=== PATIENT | female | born 1980 | race Caucasian/White ===

== ENCOUNTER 2023-10-16 16:49 | Outpatient (REF) | payer BC, SELFPAY | END 2023-10-16 16:50 | disposition home or self-care (01) | LOC: NFLDREF 16:49 | PROVIDERS: PCP Family Medicine; Referring Provider Family Medicine; Visit Provider Nurse Practitioner | DX: N30.00 Acute cystitis without hematuria (principal) | CPT/HCPCS: 87086; 87186 ==

== ENCOUNTER 2024-07-22 17:50 | Emergency (ER) | payer BC, SELFPAY ==
[2024-07-22 17:53] VITALS: BP 135/83; PULSE 70; RESP 18; TEMP 36.4; O2SAT 100; BMI 26.4
[2024-07-22 18:12] LABS: Appearance Urine Clear (Clear); Bilirubin Urine Negative (Negative); Blood Urine 3+ (Negative); Color Urine Yellow (Yellow); Glucose Urine Negative (Negative); Ketones Urine Negative (Negative); Leukocyte Esterase Urine 1+ (Negative); Nitrite Urine Negative (Negative); Protein Urine 2+ (Negative); Urobilinogen Urine 0.2 (0.2-1.0)
--- OUTSIDE RECORDS SUMMARY | 2024-07-22 18:12 | XMS_ITS | Clinical Summary ---
Author Organization [facility] Address [place], [place] [address] Care Team Providers Care Freezer Person Name Role Phone Annette Mensah DO Primary Care Provider [phone] Allergies Active Allergy Reactions Criticality Noted Date Comments Sulfa (Sulfonamide Antibiotics) Throat Swelling/Closing High 01/03/2018 Medications Medication Sig Dispensed Refills Start Date End Date Status multivitamin (MVI) tablet Take 1 Tablet by mouth once daily. 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 Increased risk sab, labor and 50% successful live per perinatology Seen in L&D 06/08/20 with ctxs. Resolved with IVF, cervix closed. FFN negative. Received betamethasone x 2 Does NOT want to know gender Rhogam given 05/20/20 at 28wks along with Tdap and Influenza vaccine Estimated Date of Delivery: 08/07/20 Patient's last menstrual period was 10/30/2019. Last Tdap- 05/20/2020 Last Flu vaccine- 05/20/2020 Glucose (GTT) result- Component Latest Ref Rng & Units 05/20/2020 HEMOGLOBIN 12.0 - 16.0 g/dL 11.5 (L) MCV 80 - 100 fL 89 ANTIBODY SCREEN Negative Negative SPECIMEN EXPIRATION DATE/TIME 05/22/20 23:59 GLUCOSE,GESTATIONAL 65 - 139 mg/dL 80 TREPONEMA PALLIDUM Negative Negative 20 week US:LMP: 10/30/2019. FINDINGS: Gestational age by LMP: 24 weeks 6 days. Gestational age by first ultrasound: 24 weeks 4 days. Gestational age by today's ultrasound: 24 weeks 6 days. NICOL by LMP: 08/05/2020. NICOL by first ultrasound: 08/07/2020. NICOL by today's ultrasound: 08/05/2020. Heart Rate: 149 beats per minute. SDP: 4.5 cm. Cervical Length: 3.8 cm. Umbilical Artery S/D Ratio: 2.9. Estimated Weight: 792 grams. Percentile: 73%. Placenta: Anterior. Position: Breech. BPD: 58 mm, 23 weeks 6 days. HC: 216 mm, 23 weeks 5 days. AC: 208 mm, 25 weeks 3 days. FL: 48 mm, 26 weeks 0 days. IMPRESSION: Single live intrauterine gestation with a composite gestational age of 24 weeks 6 days and NICOL of 08/05/2020. Allergies Allergen Reactions Sulfa (Sulfonamide Antibiotics) Throat Swelling/Closing OB History Para Term AB Living 5 0 0 0 4 0 SAB TAB Ectopic Multiple Live Births 4 0 0 0 0 # Outcome Date GA Lbr Brenden/2nd Weight Sex Delivery Anes PTL Lv 5 Current 4 SAB 08/19/19 6w0d 3 SAB 05/2019 Comments: 'chemical ' per pt 2 SAB 09/2018 Comments: early sab 1 SAB 2002 8w0d Create lab flowsheet for OB labs- Component Latest Ref Rng & Units 12/30/2019 12/30/2019 12/30/2019 11:00 AM 11:00 AM 11:00 AM ANTIBODY SCREEN Negative Negative SPECIMEN EXPIRATION DATE/TIME 01/02/20 23:59 HEMOGLOBIN 12.0 - 16.0 g/dL 12.9 MCV 80 - 100 fL 87 RUBELLA IGG ANTIBODY Positive 6.62 HEMOGLOBIN A1C SCREENING <=6.4 % 5.2 HBSAG Nonreactive Nonreactive HIV-1/HIV-2 ANTIBODY Non-Reactive Non-Reactive TREPONEMA PALLIDUM Negative Negative Past Medical History: . Date ASCUS of cervix with negative high risk HPV 12/2016 Low grade squamous intraepithelial lesion (LGSIL) on cervical Pap smear 12/2015 [place]-R[facility] 1 Past Surgical History: . Laterality Date COLPOSCOPY 12/2017 negative; Pap: NIL/HPV negative; Recommend Pap smear/hpv in 1 year. Due- 12/2018 COLPOSCOPY 01/2016 [facility] 1 DILATION AND CURETTAGE OF UTERUS 08/2003 WISDOM TEETH EXTRACTION 2000 No data on file. Problems (from 12/02/19 to present) No problems associated with this episode. 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 RICH I (cervical intraepithelial neoplasia I) 04/2018 Overview (08/04/2022): 01/18/2016 LSIL 01/28/2016 [place]: RICH I 01/18/2017 ASCUS/HPV Negative 01/18/2018 NIL/HPV Negative 01/18/2018 [place]: ECC Benign 01/14/2019 NIL/HPV Negative 02/11/2020 NIL/HPV Negative 06/30/2022 NIL/HPV Negative Plan: Pap/HPV due 06/2027 Immunizations Name Administration Dates Next Due DTaP 03/10/1987, 4,1982,1982, Hepatitis B (Peds) 11/06/1995,05/22/1995, 995 Hib Conjugate, Unspecified 07/08/1985 Human Papilloma Virus Vaccine 02/25/2008, 007,06/04/2007 Inactivated Polio Vaccine 03/10/1987,09/16/1983, 1982,1982 Influenza, IIV4 05/20/2020,07/24/2017 MMR 04/10/1995,09/16/1983 Tdap 05/20/2020,03/16/2009,04/07/1997 Family History Medical History Relation Name Comments Hyperlipidemia Father Hypertension Father Cancer-colon Maternal Grandmother Hypertension Maternal Grandmother Hyperlipidemia Mother Hypertension Mother Leukemia Paternal Grandmother Relation Name Status Comments Father Alive Maternal Grandmother Mother Alive Paternal Grandmother Social History Tobacco Use Types Packs/Day Years Used Date Smoking Tobacco: Former Cigarettes 1 17 0 01/03/2001 - 03/05/2016 Smokeless Tobacco: Never Tobacco Cessation:Counseling Given: Yes Alcohol Use Standard Drinks/Week Comments Yes 0 (1 standard drink = 0.6 oz pur e alcohol) PHQ-2 Answer Date Recorded PHQ-2 TOTAL SCORE 0 01/17/2024 Social Connections Answer Date Recorded Do you often feel lonely or isolated from those around you? 0 01/17/2024 Alcohol Use Answer Date Recorded How often do you have a drink containing alcohol ? 2 01/17/2024 How many drinks containing a lcohol do you have on a typical day when you are drinking? 0 01/17/2024 How often do you have five or more drinks on one occasion? 0 01/17/2024 Financial Resource Strain Answer Date R ecorded Difficulty of Paying Living Expenses 3 01/17/2024 Difficulty of Paying Living Expenses Not on file 01/17/2024 Food Insecurity Answer Date Recorded Do you worry your food will run out before you are able to buy more? 1 01/17/2024 Transportation Needs Answer Date Record ed Does lack of transportation keep you from medica l appointments? 1 01/17/2024 Does lack of transportation keep you from work, meetings or getting things that you need? 1 01/17/2024 Housing Stability Answer Date Recorded What is your housing situation today? 1 01/17/2024 Sex and Gender Information Value Date Recorded Sex Assigned at Not on file Gender Identity Not on file Sexual Orientation Not on file Obstetrics History Para Term AB IAB SAB Ectopic Multiple Livin g Live Births 5 0 0 0 4 0 4 0 0 0 0 Date Outcome GA Total Labor Labor/2nd/3rd Weight Sex Type Anes PTL Nicki A1 A5 Name Clin 2003 SAB 8w0d 09/2018 SAB Comments:early sab 05/2019 SAB Comments:'chemical pre gnancy' per pt 019 SAB 6w0d Last Filed Vital Signs Vital Sign Reading Time Taken Comments Blood Pressure 100/67 01/17/2024 7:33 AM CDT Pulse 86 01/17/2024 7:33 AM CDT Temperature 36.8 C (98.2 F) 12/14/2022 3:35 PM CDT Respiratory Rate 16 12/14/2022 5:30 PM CDT Oxygen Saturation 99% 01/17/2024 7:33 AM CDT Inhaled Oxygen Concentration - - Weight 71.2 kg (157 lb) 01/17/2024 7:33 AM CDT Height 161.3 cm (5' 3.5) 01/17/2024 7:33 AM CDT Body Mass Index 27.38 01/17/2024 7:33 AM CDT Plan of Treatment Health Maintenance Due Date Last Done Comments COVID-19 vaccine series (2023- season) 2024 Influenza for age 9-49 04/28/2024 05/20/2020, 2016 BMI (ht and wt on same day) for age 18+ 01/16/2025 01/17/2024, 11/28/2022, 10/28/2022, Additional history exists Depression screening for age 12+ 01/16/2025 01/17/2024, 06/30/2022, 05/20/2020, Additional history exists Pap test for age 21-65 06/30/2027 , 06/30/2022, 02/11/2020, Additional history exists Tetanus booster 05/20/2030 05/20/2020, 02/26, 04/07/1997 Hepatitis C screening for age 18-79 Completed 08/06/2019 HIV for age 15-65 Completed 12/30/2019, 08/06/2019 Tdap Completed 05/20/2020, 02/26, 04/07/1997 Pneumococcal series for age 6-64 Aged Out No longer eligible based on patient's age to complete this topic Medical Devices Implanted Type Area [facility] Device Identifier Shelf Expiration Date Model / Serial / Lot Novostitch Meniscal Repair Cartridge Implanted:Qty: 1 on 12/14/2022 by Yeison Zhao MD at [facility] Left: Knee [employer] 01/15/2023 CTX-R001 / / [id number] Novostitch Pro Meniscal Repair System Implanted:Qty: 2 on 12/14/2022 by Yeison Zhao MD at [facility] Left: Knee [employer] 03/13/2024 CTX-A003 / / [id number] Nov[employer]itch Meniscal Repair Cartridge Implanted:Qty: 2 on 12/14/2022 by Yeison Zhao MD at [facility] Left: Knee [employer] 06/10/2023 CTX-R001 / / [id number] Fiberstitch Implant Curved Implanted:Qty: 1 on 12/14/2022 by Yeison Zhao MD at [facility] Left: Knee [employer] 09/27/2026 [id number] / / [id number] Procedures Procedure Name Priority Date/Time Associated Diagnosis Comments HPV HIGH RISK Routine 06/30/2022 1:55 PM CDT Cervical cancer screening ANTI HIV 1/2 Routine 12/30/2019 11:00 AM CDT High-risk in first trimester care in first trimester ANTI HCV Routine 08/06/2019 4:18 PM CIRCULATION ANALYST Encounter for supervision of normal first in first trimester from Last 3 Months or Most Recently Relevant to Health Maintenance Results * HPV HIGH RISK (06/30/2022 1:55 PM CDT) TYPE 16 Negative Negative 07/05/2022 11:43 AM CIRCULATION ANALYST [facility] TYPE 18 Negative Negative 07/05/2022 11:43 AM CIRCULATION ANALYST [facility] OTHER HIGH RISK TYPES Negative Negative 07/05/2022 11:43 AM CIRCULATION ANALYST [facility] Other (Cervical) Non-Blood / Unknown 06/30/2022 1:55 PM CDT 07/01/2022 10:44 AM CDT Narrative [facility] - 07/05/2022 11:43 AM CIRCULATION ANALYST HPV types 16, 18, 31, 33, 35, 39, 45, 51, 52, 56, 58, 59, 66 and 68 DNA were undetectable or below the pre-set threshold. Methodology: [facility] 4800 HPV Test Annette Mensah DO MICROBIOLOGY [facility] [address] [place] [address], [place] * ANTI HIV 1/2 (12/30/2019 11:00 AM CDT) HIV-1/HIV-2 ANTIBODY Non-Reacti ve Non-Reacti ve 12/30/2019 5:08 PM CDT [facility] Comment:HIV-1 p24 and HIV-1/ HIV-2 Ab not detected. Blood BLOOD SPECIMEN / Unknown Venipuncture / Unknown 12/30/2019 11:00 AM CDT 12/30/2019 11:00 AM CDT Annette Mensah DO SEND OUTS [facility] [address] [place] [address], [place] * ANTI HCV (08/06/2019 4:18 PM CIRCULATION ANALYST) Pathologist [facility] HEPATITIS C ANTIBODY Non-React anna Non-React anna 08/07/2019 2:46 PM CIRCULATION ANALYST [facility] Comment:Antibodies to HCV no t detected; does not exclude the possibility of exposure to HCV. Blood BLOOD SPECIMEN / Unknown Venipuncture / Unknown 08/06/2019 4:18 PM CIRCULATION ANALYST 08/06/2019 4:18 PM CIRCULATION ANALYST Shannan MARIA [facility] [address] [place] [phone], from Last 3 Months or Most Recently Relevant to Health Maintenance Advance Directives * Full Code (Latest Code Status on File) Date Activated Date Inactivated Comments 12/14/2022 9:59 AM 12/14/2022 9:01 PM Question Answer Comments Code Status Discussion: Reviewed Preferences Care Teams Freezer Person Relationship Specialty Start Date End Date Annette Mensah DO [address] [place] [address] PCP - General Family Practice 08/01/17
[2024-07-22 18:28] LABS: Bacteria Urine Few; Squamous Epithelial Cell Urine Few (None-Few)
--- NOTE | 2024-07-22 18:29 | ED_ITS ---
HPI - General Adult General Chief complaint: Urogenital Problems, Female Stated complaint: Likely bladder infection Time Seen by Provider: 07/22/24 17:53 Source: patient Mode of arrival: ambulatory Limitations: no limitations History of Present Illness HPI narrative: 44-year-old female coming in today with 1 day of dysuria, increased urinary frequency and urgency. Had a UTI last year that was similar. Denies flank pain, fevers, chills, nausea or vomiting. Related Data Previous Rx's ?Medication ?Instructions ?Recorded nitrofurantoin 100 mg PO Q12H 5 days #10 caps 07/22/24 monohydrate/macrocrystals 100 mg capsule (Macrobid) Allergies Allergy/AdvReac Type Severity Reaction Status Date / Time Sulfa (Sulfonamide Allergy Verified 07/22/24 17:57 Antibiotics) Review of Systems Status of ROS: Reports: 6 or more systems reviewed and unremarkable except as noted in History and below PFSH PFS Social History Smoking Status: Former smoker How often do you have a drink containing alcohol: monthly or less AUDIT-C Alcohol total score: 1 Non-prescribed substance use: denies use Exam Narrative: Exam Narrative: Well-nourished well-developed patient in no acute distress. Alert and oriented. Answers questions appropriately. Mood and affect are appropriate. Thoughts are goal oriented and rational. No tangential or magical thinking noted. Patient speaks in full sentences without needing to catch her breath. HEENT: Normocephalic atraumatic. Pupils are equally round reactive to light. Extraocular muscles are intact. Conjunctivae are moist without any icterus noted. Moist mucous membranes. Cardiovascular: Heart is regular rate and rhythm. Lungs: Clear to auscultation bilaterally. Abdomen: Soft and nontender nondistended with normal bowel sounds. Const: Vital Signs, click to edit/add: Vital Signs - 24 hr 07/22/24 17:53 Temperature 97.5 F L Pulse Rate [Left P ulse Oximeter] 70 Respiratory Rate 18 Blood Pressure [Ri ght Upper Arm] 135/83 Pulse Oximetry 100 Oxygen Delivery Me thod Room Air Course Course ED Course: UA grossly positive for signs of infection. Vital Signs Vital signs: Initial Vital Signs Temperature 97.5 F L 07/22/24 17:53 Temperature Source Oral 07/22/24 17:53 Pulse Rate 70 07/22/24 17:53 Respiratory Rate 18 07/22/24 17:53 Blood Pressure 135/83 07/22/24 17:53 Blood Pressure Mean 100 07/22/24 17:53 Blood Pressure Position Sitting 07/22/24 17:53 Pulse Oximetry 100 07/22/24 17:53 Oxygen Delivery Method Room Air 07/22/24 17:53 Vital Signs Temperature 97.5 F L 07/22/24 17:53 Pulse Rate 70 07/22/24 17:53 Respiratory Rate 18 07/22/24 17:53 Blood Pressure 135/83 07/22/24 17:53 Pulse Oximetry 100 07/22/24 17:53 Oxygen Delivery Method Room Air 07/22/24 17:53 Temperature 97.5 F L 07/22/24 17:53 Pulse Rate 70 07/22/24 17:53 Respiratory Rate 18 07/22/24 17:53 Blood Pressure 135/83 07/22/24 17:53 Pulse Oximetry 100 07/22/24 17:53 Oxygen Delivery Method Room Air 07/22/24 17:53 Medical Decision Making MDM Narrative Medical decision making narrative: 44-year-old female with UTI. Will treat with Macrobid. Lab Data Lab results reviewed: Yes I reviewed the patient's lab results Labs: Lab Results 07/22/24 Range/Units 18:00 Urine Color Yellow (Yellow) Urine Appearance Clear (Clear) Urine pH 6.0 (5.0-8.5) Ur Specific [place] 1.010 (1.000-1.030) Urine Protein 2+ A (Negative) Urine Glucose (UA) Negative (Negative) Urine Ketones Negative (Negative) Urine Blood 3+ A (Negative) Urine Nitrite Negative (Negative) Urine Bilirubin Negative (Negative) Urine Urobilinogen 0.2 (0.2-1.0) Ur Leukocyte Esterase 1+ A (Negative) Urine RBC 10-25 A (0-2) Urine WBC 10-25 A (0-5) Ur Squamous Epith Cells Few (None-Few) Urine Bacteria Few A (None) Discharge Plan Discharge Clinical Impression: Urinary tract infection Instructions: Urinary Tract Infection in Women (DC) Additional Instructions: Take all antibiotics as prescribed. If you are not feeling better in 2-3 days, follow-up with your primary care provider. Prescriptions: New nitrofurantoin monohyd/m-cryst [Macrobid] 100 mg capsule 100 mg PO Q12H 5 Days Qty: 10 0RF Rx Instructions: must administer with a meal/food Follow Up/Referrals: Annette Mensah DO [Primary Care Provider] - Stand Alone Forms: MyHealth Info Instructions
== END 2024-07-22 18:39 | disposition home or self-care (01) ==
PROVIDERS: Emergency Provider Family Medicine; PCP Family Medicine
DX: N39.0 Urinary tract infection, site not specified (principal)
CPT/HCPCS: 81001; 81003; 87086; 99282; 99283